=== PATIENT | male | born 1965 | race Caucasian/White ===

== ENCOUNTER 2018-01-02 14:22 | Observation (INO) | payer SELFPAY ==
[~2018-01-02] VITALS: Ht 175.3 cm; Wt 123.4 kg
--- OUTSIDE RECORDS SUMMARY | 2018-01-02 14:28 | XMS REPORT ---
Author Author DARRYL THOMPSON Organization [employer] Address Unknown Phone Unavailable Care Team Providers Care Tandem Mill Sticker Name Role Phone DARRYL THOMPSON CP Unavailable Allergies, Adverse Reactions, Alerts Substance Reaction Event Type N.K.D.A. Info Not Available Non Drug Allergy Problems Problem Type Condition Code Onset Dates Condition Status Assessment Essential hypertension with goal blood pressure less than 140\/90 I10 Active Problem Essential hypertension, benign 401.1 Active Problem Other and unspecified hyperlipidemia 272.4 Active Problem Pain of right heel M79.671 Active Problem Pain in left ankle and joints of left foot M25.572 Active Problem Essential hypertension with goal blood pressure less than 140\/90 I10 Active Problem Actinic keratitis 370.24 Active Problem Seborrheic keratoses 702.19 Active Problem Morbid obesity due to excess calories E66.01 Active Problem Obesity 278.00 Active Assessment Morbid obesity due to excess calories E66.01 Active Assessment Pain in left ankle and joints of left foot M25.572 Active Assessment Pain of right heel M79.671 Active Medications Medication Code System Code Instructions Start Date End Date Status Dosage Lisinopril-Hydrochlorothiazide [facility] [address]-61 20-12.5 MG Orally Once a day May 12, 2015 2 tablets Mobic [facility] [address]-61 7.5 MG Orally twice a day February 26, 2016 1 tablet as needed for pain Procedures Procedure Coding System Code Date Office Visit, Est Pt., Level 4 CPT-4 63169 February 26, 2016 Vital Signs Date/Time: February 26, 2016 Temperature 98.1 F Weight 280.9 lbs Height 69 in BMI 41.48 Index Blood Pressure Diastolic 100 mmHg Blood Pressure Systolic 170 mmHg Cardiac Monitoring Heart Rate 84 bpm Results No Known Results Summary Purpose [employer] Submission
--- OUTSIDE RECORDS SUMMARY | 2018-01-02 14:28 | XMS REPORT ---
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 Active Problem Morbid obesity due to excess calories E66.01 Active Assessment Plantar fasciitis M72.2 Active Medications Medication Code System Code Instructions Start Date End Date Status Dosage [facility] [address]-97 15 MG Orally Once a day Jun 09, 2016 Aug 08, 2016 1 tablet Procedures Procedure Coding System Code Date Office Visit, Est Pt., Level 3 CPT-4 87841 Jun 09, 2016 X-RAY EXAM OF FOOT CPT-4 36804 Jun 09, 2016 FOOT ARCH SUPP PREMOLD LNGTUDNL EA CPT-4 L3040 Jun 09, 2016 Vital Signs Date/Time: Jun 09, 2016 Blood Pressure Diastolic 72 mmHg Blood Pressure Systolic 112 mmHg Height 69 in Results No Known Results Summary Purpose [employer] Submission
--- OUTSIDE RECORDS SUMMARY | 2018-01-02 14:28 | XMS REPORT ---
Author GIAN Jean [employer] Address Unknown Phone Unavailable Care Team Providers Care Gas Main And Line Fitter Name Role Phone GIAN ROSA CP Unavailable Allergies, Adverse Reactions, Alerts Substance Reaction Event Type N.K.D.A. Info Not Available Non Drug Allergy Problems Problem Type Condition ICD-9 Code Onset Dates Condition Status Assessment Actinic keratitis 370.24 Active Assessment Obesity 278.00 Active Assessment Foot pain, right 729.5 Active Assessment Seborrheic keratoses 702.19 Active Problem Actinic keratitis 370.24 Active Problem Seborrheic keratoses 702.19 Active Problem Obesity 278.00 Active Assessment Essential hypertension, benign 401.1 Active Assessment Other and unspecified hyperlipidemia 272.4 Active Problem Essential hypertension, benign 401.1 Active Problem Other and unspecified hyperlipidemia 272.4 Active Medications Medication Code System Code Instructions Start Date End Date Status Dosage Lisinopril-Hydrochlorothiazide [facility] [address]-91 20-12.5 MG Orally 2 times a day May 12, 2015 1 tablet Atorvastatin Calcium [facility] [address]-64 40 MG Orally Once a day May 12, 2015 1 tablet Triamcinolone Acetonide [facility] [address]-49 0.1 % Externally Twice a day Jun 29, 2015 1 application to affected area Procedures Procedure Coding System Code Date Office Visit, Est Pt., Level 4 CPT-4 42623 Jun 29, 2015 Vital Signs Date/Time: Jun 29, 2015 Temperature 98.7 F Weight 263.11 lbs Height 69 in BMI 38.85 Index Blood Pressure Diastolic 76 mmHg Blood Pressure Systolic 110 mmHg Cardiac Monitoring Heart Rate 71 bpm Results No Known Results Summary Purpose [employer] Submission
--- OUTSIDE RECORDS SUMMARY | 2018-01-02 14:28 | XMS REPORT | Continuity of Care Document ---
Author Author [facility] Address Unknown Phone Unavailable Allergies There is no data. Medications There is no data. Problems Date Dx Coded Attending Type Code Diagnosis Diagnosed By 10/16/2011 TENZIN BECERRA MD 278.00 OBESITY 10/16/2011 TENZIN BECERRA MD 401.9 ESSENTIAL HYPERTENSION 10/16/2011 TENZIN BECERRA MD V04.81 FLU DX (3 YRS AND ABOVE, IM) 10/16/2011 TENZIN BECERRA MD V70.0 ROUTINE GENERAL MEDICAL EXAMINATION AT A HEALTH CARE FACILITY 10/16/2011 TENZIN BECERRA MD 278.00 OBESITY 10/16/2011 TENZIN BECERRA MD 401.9 ESSENTIAL HYPERTENSION 10/16/2011 TENZIN BECERRA MD V04.81 FLU DX (3 YRS AND ABOVE, IM) 10/16/2011 TENZIN BECERRA MD V70.0 ROUTINE GENERAL MEDICAL EXAMINATION AT A HEALTH CARE FACILITY 10/16/2011 GIAN ROSA APRN 278.00 OBESITY 10/16/2011 GIAN ROSA APRN 401.9 ESSENTIAL HYPERTENSION 10/16/2011 GIAN ROSA APRN V04.81 FLU DX (3 YRS AND ABOVE, IM) 10/16/2011 GIAN ROSA APRN V70.0 ROUTINE GENERAL MEDICAL EXAMINATION AT A HEALTH CARE FACILITY 10/16/2011 GIAN ROSA APRN 278.00 OBESITY 10/16/2011 GIAN ROSA APRN 401.9 ESSENTIAL HYPERTENSION 10/16/2011 GIAN ROSA APRN V04.81 FLU DX (3 YRS AND ABOVE, IM) 10/16/2011 GIAN ROSA APRN V70.0 ROUTINE GENERAL MEDICAL EXAMINATION AT A HEALTH CARE FACILITY 10/16/2011 GIAN ROSA APRN 278.00 OBESITY 10/16/2011 GIAN ROSA APRN 401.9 ESSENTIAL HYPERTENSION 10/16/2011 GIAN ROSA APRN V04.81 FLU DX (3 YRS AND ABOVE, IM) 10/16/2011 GIAN ROSA APRN V70.0 ROUTINE GENERAL MEDICAL EXAMINATION AT A HEALTH CARE FACILITY 10/16/2011 CANELO REYNAGA DO 278.00 OBESITY 10/16/2011 CANELO REYNAGA DO K 401.9 ESSENTIAL HYPERTENSION 10/16/2011 CANELO REYNAGA DO V04.81 FLU DX (3 YRS AND ABOVE, IM) 10/16/2011 CANELO REYNAGA DO V70.0 ROUTINE GENERAL MEDICAL EXAMINATION AT A HEALTH CARE FACILITY 10/28/2012 TENZIN BECERRA MD 244.9 HYPOTHYROIDISM SUBCLINICAL 10/28/2012 TENZIN BECERRA MD 272.4 HYPERLIPIDEMIA 10/28/2012 TENZIN BECERRA MD 401.1 ESSENTIAL HYPERTENSION BENIGN 10/28/2012 GIAN ROSA APRN 244.9 HYPOTHYROIDISM SUBCLINICAL 10/28/2012 GIAN ROSA APRN 272.4 HYPERLIPIDEMIA 10/28/2012 GIAN ROSA APRN 401.1 ESSENTIAL HYPERTENSION BENIGN 10/28/2012 GIAN ROSA APRN 244.9 HYPOTHYROIDISM SUBCLINICAL 10/28/2012 GIAN ROSA APRN 272.4 HYPERLIPIDEMIA 10/28/2012 GIAN ROSA APRN 401.1 ESSENTIAL HYPERTENSION BENIGN 10/28/2012 GIAN ROSA APRN 244.9 HYPOTHYROIDISM SUBCLINICAL 10/28/2012 GIAN ROSA APRN 272.4 HYPERLIPIDEMIA 10/28/2012 GIAN ROSA APRN 401.1 ESSENTIAL HYPERTENSION BENIGN 10/28/2012 CANELO REYNAGA DO 244.9 HYPOTHYROIDISM SUBCLINICAL 10/28/2012 CANELO REYNAGA DO 272.4 HYPERLIPIDEMIA 10/28/2012 CANELO REYNAGA DO 401.1 ESSENTIAL HYPERTENSION BENIGN 03/09/2014 GIAN ROSA APRN 780.79 FATIGUE 03/09/2014 CANELO REYNAGA DO 780.79 FATIGUE Procedures Code [place] [address] ROUTINE VENIPUNCTURE 10/21/2012 56894 CMP 10/21/2012 30427 LIPID PANEL 10/21/2012 42255 A1C (RML) 10/21/2012 78167 CBC 10/21/2012 THYANA THYROID ANALYZER 10/21/2012 01552 ROUTINE VENIPUNCTURE 10/28/2012 91780 T4 FREE 10/28/2012 84689 TSH 10/28/2012 79412 EKG, TRACING (IN-HOUSE) 02/23/2014 75442 MICROALBUMIN 02/23/2014 90284 ROUTINE VENIPUNCTURE 03/09/2014 40581 CMP 03/09/2014 75027 LIPID PANEL 03/09/2014 THYANA THYROID ANALYZER 03/09/2014 25304 TESTOSTERONE TOTAL MALES 03/09/2014 87570 CBC 03/09/2014 Results There is no data. Encounters ACCT No. Visit Date/Time Discharge Status Pt. Type Provider Facility Loc./Unit Complaint [id number] 03/19/2014 09:04:00 03/19/2014 23:59:59 CLS Outpatient CANELO REYNAGA DO [id number] 03/09/2014 14:20:00 03/09/2014 23:59:59 CLS Outpatient GIAN ROSA APRN [id number] 03/09/2014 08:17:00 03/09/2014 23:59:59 CLS Outpatient GIAN ROSA APRN [id number] 02/23/2014 08:59:00 02/23/2014 23:59:59 CLS Outpatient GIAN ROSA APRN [id number] 10/28/2012 10:25:00 10/28/2012 23:59:59 CLS Outpatient TENZIN BECERRA MD [id number] 10/21/2012 08:29:00 10/21/2012 23:59:59 CLS Outpatient TENZIN BECERRA MD
[2018-01-02] MEDS ORDERED: NS IV 1000 ML 1,000 ML IV ONE (14:35)
[2018-01-02 14:49] LABS: BASOPHILS % (AUTO) 0 % (0-10); EOSINOPHILS # (AUTO) 0.2 10^3/uL (0.0-0.3); EOSINOPHILS % (AUTO) 2 % (0-10); HEMATOCRIT 45 % (40-54); HEMOGLOBIN 15.4 G/DL (13.3-17.7); LYMPHOCYTES # (AUTO) 1.4 X 10^3 (1.0-4.0); LYMPHOCYTES % (AUTO) 17 % (12-44); MEAN CORPUSCULAR HEMOGLOBIN 31 PG (25-34); MEAN CORPUSCULAR HGB CONC 34 G/DL (32-36); MEAN CORPUSCULAR VOLUME 90 FL (80-99); MEAN PLATELET VOLUME 11.8 FL (7.4-10.4); MONOCYTES # (AUTO) 1.1 X 10^3 (0.0-1.0); MONOCYTES % (AUTO) 13 % (0-12); NEUTROPHILS # (AUTO) 5.6 X 10^3 (1.8-7.8); NEUTROPHILS % (AUTO) 68 % (42-75); PLATELET COUNT 162 10^3/uL (130-400); RED BLOOD COUNT 4.97 10^6/uL (4.35-5.85); RED CELL DISTRIBUTION WIDTH 13.9 % (10.0-14.5); WHITE BLOOD COUNT 8.2 10^3/uL (4.3-11.0)
[2018-01-02] MEDS ORDERED: LISI1TAB8 PO (14:53)
[2018-01-02 15:06] LABS: ALBUMIN 4.2 GM/DL (3.2-4.5); BILIRUBIN,TOTAL 0.7 MG/DL (0.1-1.0); CALCIUM 9.9 MG/DL (8.5-10.1); CREATININE SERUM 1.26 MG/DL (0.60-1.30); POTASSIUM 4.2 MMOL/L (3.6-5.0); TOTAL PROTEIN 8.2 GM/DL (6.4-8.2)
[2018-01-02] MEDS ORDERED: NS 100 ML (IVPB) BAG IV ONE (15:15)
[2018-01-02] MEDS ORDERED: IOHEXOL 350 MG/ML 150 ML (OMNIPAQUE 350) VIAL IV ONE (15:15)
--- NOTE | 2018-01-02 15:45 | ED Respiratory ---
General Chief Complaint: Respiratory Problems Stated Complaint: SOB Nursing Triage Note: pt presents to ED after getting out pt US of L leg for pain/ tightness/ redness starting . Pt also reports intermittent SOA since as well. Pt reports he was told today he did have blood clots in his l leg. Source: patient Exam Limitations: no limitations History of Present Illness Date Seen by Provider: Jan 02, 2018 Time Seen by Provider: 14:30 Initial Comments Here with report of left lower extremity swelling and pain for the past several days. Also has had some shortness of air. Past couple of days. Had ultrasound done today here per the direction of his primary care provider at [facility]. This was positive for DVT. Given the shortness of breath the clinic recommended following up in the ER for further evaluation. Denies chest pain, weakness, sweating, nausea, vomiting or abdominal pain. Timing/Duration: week, getting worse Severity: moderate Associated Symptoms: No chest pain/soreness, No cough, No fever/chills, No nasal congestion, No nasal drainage, shortness of breath, sore throat Allergies and Home Medications Allergies Coded Allergies: No Known Drug Allergies (Unverified , 01/02/18) Constitutional: see HPI EENTM: no symptoms reported Respiratory: see HPI, dyspnea on exertion, short of breath Cardiovascular: no symptoms reported Gastrointestinal: no symptoms reported Musculoskeletal: no symptoms reported Skin: no symptoms reported All Other Systems Reviewed Negative Unless Noted: Yes Past Vfbatrm-Fkercj-Ebeveq Hx Patient Social History Alcohol Use: Occasionally Uses Recreational Drug Use: No Smoking Status: Never a Smoker 2nd Hand Smoke Exposure: No Recent Foreign Travel: No Contact w/Someone Who Travel: No Recent Infectious Disease Expo: No Physical Abuse: No Sexual Abuse: No Mistreated: No Fear: No Surgeries History of Surgeries: No Respiratory History of Respiratory Disorde: No Cardiovascular History of Cardiac Disorders: Yes Cardiac Disorders: High Cholesterol, Hypertension Neurological History of Neurological Disord: No Genitourinary History of Genitourinary Disor: No Gastrointestinal History of Gastrointestinal Di: No Musculoskeletal History of Musculoskeletal Dis: No Endocrine History of Endocrine Disorders: No HEENT History of HEENT Disorders: No Cancer History of Cancer: No Psychosocial History of Psychiatric Problem: No Suicide Risk Score: 0 Integumentary History of Skin or Integumenta: No Blood Transfusions History of Blood Disorders: No Reviewed Nursing Assessment Reviewed/Agree w Nursing PMH: Yes Family Medical History Significant Family History: Diabetes, Hypertension Physical Exam Vital Signs Vital Signs - First Documented 01/02/18 14:39 Temp 97.9 Pulse 78 Resp 20 B/P (MAP) 116/70 (85) Pulse Ox 97 O2 Delivery Room Air Capillary Refill : Less Than 3 Seconds General Appearance: WD/WN, no apparent distress HEENT: PERRL/EOMI, pharynx normal Neck: full range of motion, supple Respiratory: lungs clear, normal breath sounds Cardiovascular: regular rate, rhythm, no murmur Gastrointestinal: non tender, soft Extremities: non-tender, calf tenderness (left-sided), swelling (left-sided) Neurologic/Psychiatric: alert, oriented x 3 Skin: normal color, warm/dry Progress/Results/Core Measures Suspected Sepsis Recent Fever Within 48 Hours: No Infection Criteria Present: None New/Unexplained Altered Menta: No Sepsis Screen: No Definite Risk Sepsis Diagnosis: SIRS Temperature:97.9 Pulse: 78 Respiratory Rate: 20 Laboratory Tests 01/02/18 14:33: White Blood Count 8.2 Blood Pressure 116 /70 Mean: 85 Laboratory Tests 01/02/18 14:33: Creatinine 1.26, Platelet Count 162, Total Bilirubin 0.7 Results/Orders Lab Results Laboratory Tests Test 01/02/18 14:33 01/02/18 16:29 Range/Units White Blood Count 8.2 4.3-11.0 10^3/uL Red Blood Count 4.97 4.35-5.85 10^6/uL Hemoglobin 15.4 13.3-17.7 G/DL Hematocrit 45 40-54 % Mean Corpuscular Volume 90 80-99 FL Mean Corpuscular Hemoglobin 31 25-34 PG Mean Corpuscular Hemoglobin Concent 34 32-36 G/DL Red Cell Distribution Width 13.9 10.0-14.5 % Platelet Count 162 130-400 10^3/uL Mean Platelet Volume 11.8 H 7.4-10.4 FL Neutrophils (%) (Auto) 68 42-75 % Lymphocytes (%) (Auto) 17 12-44 % Monocytes (%) (Auto) 13 H 0-12 % Eosinophils (%) (Auto) 2 0-10 % Basophils (%) (Auto) 0 0-10 % Neutrophils # (Auto) 5.6 1.8-7.8 X 10^3 Lymphocytes # (Auto) 1.4 1.0-4.0 X 10^3 Monocytes # (Auto) 1.1 H 0.0-1.0 X 10^3 Eosinophils # (Auto) 0.2 0.0-0.3 10^3/uL Basophils # (Auto) 0.0 0.0-0.1 10^3/uL Sodium Level 138 135-145 MMOL/L Potassium Level 4.2 3.6-5.0 MMOL/L Chloride Level 104 98-107 MMOL/L Carbon Dioxide Level 23 21-32 MMOL/L Anion Gap 11 5-14 MMOL/L Blood Urea Nitrogen 21 H 7-18 MG/DL Creatinine 1.26 0.60-1.30 MG/DL Estimat Glomerular Filtration Rate 60 BUN/Creatinine Ratio 17 Glucose Level 102 70-105 MG/DL Calcium Level 9.9 8.5-10.1 MG/DL Total Bilirubin 0.7 0.1-1.0 MG/DL Aspartate Amino Transf (AST/SGOT) 74 H 5-34 U/L Alanine Aminotransferase (ALT/SGPT) 84 H 0-55 U/L Alkaline Phosphatase 82 40-136 U/L Total Protein 8.2 6.4-8.2 GM/DL Albumin 4.2 3.2-4.5 GM/DL My Orders Orders - PATRICIA KO MD Cbc With Automated Diff (01/02/18 14:35) Comprehensive Metabolic Panel (01/02/18 14:35) Ct Angio Chest W (01/02/18 14:35) Saline Lock/Iv-Start (01/02/18 14:35) Ns Iv 1000 Ml (Sodium Chloride 0.9%) (01/02/18 14:35) Iohexol Injection (Omnipaque 350 Mg/Ml 1 (01/02/18 15:15) Ns (Ivpb) (Sodium Chloride 0.9% Ivpb Bag (01/02/18 15:15) Enoxaparin Injection (Lovenox Injection) (01/02/18 16:15) Factor 5 Leiden (01/02/18 16:16) Medications Given in ED Current Medications Medications Dose Ordered Sig/Eric Route Start Time Stop Time Status Last Admin Dose Admin Enoxaparin Sodium 120 mg ONCE ONCE SC 01/02/18 16:15 01/02/18 16:16 DC 01/02/18 16:26 120 MG Iohexol 150 ml ONCE ONCE IV 01/02/18 15:15 01/02/18 15:16 DC 01/02/18 15:29 140 ML Sodium Chloride 100 ml ONCE ONCE IV 01/02/18 15:15 01/02/18 15:16 DC 01/02/18 15:29 100 ML Sodium Chloride 1,000 ml @ 0 mls/hr Q0M ONCE IV 01/02/18 14:35 01/02/18 14:37 DC 01/02/18 14:57 0 MLS/HR Vital Signs/I&O Vital Sign - Last 12Hours 01/02/18 14:39 Temp 97.9 Pulse 78 Resp 20 B/P (MAP) 116/70 (85) Pulse Ox 97 O2 Delivery Room Air Capillary Refill : Less Than 3 Seconds Blood Pressure Mean: 85 Progress Note : Progress Note Review of the chest ordered due to shortness of breath and known DVT. Normal saline 1 L bolus. 1603: Patient has an extensive PE bilaterally. I discussed the case with Dr. Butterfield. Due to both the lower extremity DVT and PE, we will watch him overnight given the has been short of breath. Lovenox 120 mg subcutaneous ordered. We will also initiate Eliquis 10 mg by mouth twice a day with a seven-day dosing and start that tonight. Findings and concerns discussed with patient and family who agree with plan. Diagnostic Imaging Diagonstic Imaging: CT Plain Films/CT/US/NM/MRI: chest Comments VIA [facility] [place], [place] NAME: KB LUDWIG [facility] REC#: [id number] PT STATUS: REG ER : 1965 PHYSICIAN: PATRICIA KO MD ADMIT DATE: 01/02/18/ER Draft Date of Exam:01/02/18 CT ANGIO CHEST W PROCEDURE: CT angiography of the chest with contrast. TECHNIQUE: Multiple contiguous axial images were obtained through the chest after uneventful bolus administration of intravenous contrast. Reconstructed CTA MIP acquisitions were also performed. INDICATION: Shortness of breath. COMPARISON: None. FINDINGS: There is a large embolus seen within the distal left main pulmonary artery and extending into the segmental branches to the left lower lobe and lingular branches. There is also embolus within the distal right main pulmonary artery with segmental branch involvement in the right upper lobe posteriorly as well as the right middle lobe and right lower lobe. There is no evidence of right heart dysfunction at this time. The lungs are clear. There is no pneumothorax or pleural fluid. There is no adenopathy. The thyroid gland appears unremarkable. There is hepatic steatosis. Visualized upper abdomen is otherwise unremarkable. No acute osseous abnormality is demonstrated. IMPRESSION: Extensive bilateral PE involving the distal main pulmonary arteries bilaterally extending into the lingula and left lower lobe as well as the right upper middle and lower lobes. No evidence of right heart dysfunction at this time. Findings were phoned to the referring physician at the time of dictation by Dr. Monica Wilson. Dictated on workstation # [id number] Dict: 01/02/18 1553 Trans: 01/02/18 1605 [facility] [id number] Interpreted by: BRIAN WILSON DO Electronically signed by: Diagonstic Imaging: Ultrasound Plain Films/CT/US/NM/MRI: leg Comments From ultrasound done earlier today NAME: KB LUDWIG [facility] REC#: [id number] PT STATUS: REG CLI : 1965 PHYSICIAN: DARRYL THOMPSON ADMIT DATE: 01/02/18/RAD Signed Date of Exam: 01/02/18 US VENOUS LOWER EXT LT PROCEDURE: US left lower extremity venous. TECHNIQUE: Multiple real-time grayscale images were obtained over the left lower extremity in various projections. Additional duplex Doppler and color Doppler images were also obtained. INDICATION: Left lower extremity swelling. The left common femoral vein is widely patent. The upper femoral vein is patent. There is partially occlusive thrombus in the midportion of the femoral vein. Occlusive thrombus is identified in the popliteal vein. Thrombus does extend below the knee into the calf. No fluid collection is detected. No mass is seen. IMPRESSION: Left lower extremity DVT, as described. Dictated by: Dictated on workstation # [id number] Dict: 01/02/18 1437 Trans: 01/02/18 1543 Interpreted by: LYNNE LUCAS MD Electronically signed by: LYNNE LUCAS MD 01/02/18 1543 Departure Communication (Admissions) Time/Spoke to Admitting Phy: 16:03 Impression Impression: Primary Impression: Bilateral pulmonary embolism Additional Impression: Left leg DVT Qualified Codes: I82.412 - Acute embolism and thrombosis of left femoral vein Disposition: ADMITTED INPATIENT Condition: Stable Admissions Decision to Admit Reason: Admit from ER (General) Decision to Admit/Date: Jan 02, 2018 Time/Decision to Admit Time: 16:03 Departure-Patient Inst. Referrals: NO,LOCAL PHYSICIAN (PCP/Family) Primary Care Physician PATRICIA KO MD Jan 02, 2018 15:45
--- NOTE | 2018-01-02 16:06 | Diagnostic Imaging Report ---
PROCEDURE: CT angiography of the chest with contrast. TECHNIQUE: Multiple contiguous axial images were obtained through the chest after uneventful bolus administration of intravenous contrast. Reconstructed CTA MIP acquisitions were also performed. INDICATION: Shortness of breath. COMPARISON: None. FINDINGS: There is a large embolus seen within the distal left main pulmonary artery and extending into the segmental branches to the left lower lobe and lingular branches. There is also embolus within the distal right main pulmonary artery with segmental branch involvement in the right upper lobe posteriorly as well as the right middle lobe and right lower lobe. There is no evidence of right heart dysfunction at this time. The lungs are clear. There is no pneumothorax or pleural fluid. There is no adenopathy. The thyroid gland appears unremarkable. There is hepatic steatosis. Visualized upper abdomen is otherwise unremarkable. No acute osseous abnormality is demonstrated. IMPRESSION: Extensive bilateral PE involving the distal main pulmonary arteries bilaterally extending into the lingula and left lower lobe as well as the right upper middle and lower lobes. No evidence of right heart dysfunction at this time. Findings were phoned to the referring physician at the time of dictation by Dr. Monica Nathan. Dictated by: Dictated on workstation # [id number]
[2018-01-02] MEDS ORDERED: ENOXAPARIN 60 MG/0.6 ML (LOVENOX) SYR SC ONE (16:15)
--- OUTSIDE RECORDS SUMMARY | 2018-01-02 17:04 | XMS REPORT | Continuity of Care Document ---
Author Author [facility] Address Unknown Phone Unavailable Allergies There is [...] ROSA APRN 244.9 HYPOTHYROIDISM SUBCLINICAL 10/28/2012 GIAN ORSA APRN 272.4 HYPERLIPIDEMIA 10/28/2012 GIAN ROSA APRN 401.1 ESSENTIAL HYPERTENSION BENIGN 10/28/2012 CANELO REYNAGA DO 244.9 HYPOTHYROIDISM SUBCLINICAL 10/28/2012 CANELO REYNAGA DO 272.4 HYPERLIPIDEMIA 10/28/2012 CANELO REYNAGA DO 401.1 ESSENTIAL HYPERTENSION BENIGN 03/09/2014 GIAN ROSA APRN 780.79 FATIGUE 03/09/2014 CANELO REYNAGA DO 780.79 FATIGUE Procedures Code Description [place] [address] ROUTINE VENIPUNCTURE 10/21/2012 42937 CMP 10/21/2012 50115 LIPID PANEL 10/21/2012 15600 A1C (RML) 10/21/2012 13248 CBC 10/21/2012 THYANA THYROID ANALYZER 10/21/2012 67225 ROUTINE VENIPUNCTURE 10/28/2012 57092 T4 FREE 10/28/2012 00496 TSH 10/28/2012 69508 EKG, TRACING (IN-HOUSE) 02/23/2014 87075 MICROALBUMIN 02/23/2014 85010 ROUTINE VENIPUNCTURE 03/09/2014 63816 CMP 03/09/2014 82710 LIPID PANEL 03/09/2014 THYANA THYROID ANALYZER 03/09/2014 23561 TESTOSTERONE TOTAL MALES 03/09/2014 30632 CBC 03/09/2014 Results There is no data. Encounters ACCT No. Visit Date/Time Discharge Status Pt. Type Provider Facility Loc./Unit Complaint [id number] 03/19/2014 09:04:00 03/19/2014 23:59:59 CLS Outpatient CANELO REYNAGA DO [id number] 03/09/2014 14:20:00 03/09/2014 23:59:59 CLS Outpatient GIAN ROSA APRN [id number] 03/09/2014 08:17:00 03/09/2014 23:59:59 CLS Outpatient GIAN ROSA APRN [id number] 02/23/2014 08:59:00 02/23/2014 23:59:59 CLS Outpatient GIAN ROSA APRN [id number] 10/28/2012 10:25:00 10/28/2012 23:59:59 CLS Outpatient TENZIN BECERRA MD [id number] 10/21/2012 08:29:00 10/21/2012 23:59:59 CLS Outpatient TENZIN BECERRA MD
[2018-01-02] MEDS ORDERED: CATHETER FLUSH 10 ML SYR IV PRN (18:00)
[2018-01-02] MEDS ORDERED: NS IV 1000 ML 1,000 ML IV SCH (18:00)
[2018-01-02] MEDS ORDERED: INFLUENZA TRIvalent 2017-2018 0.5 ML/45 MCG SYR IM ONE (18:30)
[2018-01-02 20:02] VITALS: BP 126/62
[2018-01-02] MEDS: APIXABAN 5 MG (ELIQUIS) TABLET PO SCH (21:26)
[2018-01-02] MEDS ORDERED: RT-ALBUTEROL/IPRATROPIUM 3 ML (DUONEB) VIAL INH PRN (22:30)
[2018-01-03] VITALS: BP 131/64
[2018-01-03 04:00] VITALS: BP 118/56
[2018-01-03 07:28] LABS: ALANINE AMINOTRANSFERASE 73 U/L (0-55); ALBUMIN 3.7 GM/DL (3.2-4.5); ALKALINE PHOSPHATASE 72 U/L (40-136); BILIRUBIN,TOTAL 0.7 MG/DL (0.1-1.0); BUN/CREATININE RATIO 16; CARBON DIOXIDE 18 MMOL/L (21-32); CHLORIDE 106 MMOL/L (98-107); CREATININE SERUM 1.05 MG/DL (0.60-1.30); GFR ESTIMATED > 60; GLUCOSE 103 MG/DL (70-105); POTASSIUM 4.4 MMOL/L (3.6-5.0); SODIUM 137 MMOL/L (135-145); TOTAL PROTEIN 7.1 GM/DL (6.4-8.2)
[2018-01-03 08:00] VITALS: BP 143/65
[2018-01-03] MEDS: APIXABAN 5 MG (ELIQUIS) TABLET PO SCH (08:57)
--- NOTE | 2018-01-03 10:24 | History & Physicial (CHS) ---
GINNY BALL MED STUDENT 01/03/18 1024: HPI History of Present Illness: CC: L calf pain and swelling, shortness of breath HPI: Mr. Pickens is a 52 y/o M who presented to [facility] in [place] yesterday with progressive L calf pain and swelling with shortness of breath. He says he started noticing symptoms around Sunday of last week, where he felt short of breath while he was working. On Sunday of this week, he started to have increased calf swelling and pain. Yesterday he was sent from the [place] clinic to get an ultrasound and a DVT was found in his LLE, and CT angio of his chest showed bilateral PE, so he was admitted. He does not have any personal or family history of hypercoagulability or vascular problems, and denies any liver problems that he knows of. He is a never smoker. Source: patient Exam Limitations: no limitations Date seen by provider: Jan 03, 2018 Time Seen by Provider: 09:34 Attending Physician Wenceslao Portillo MD PCP No,Local Physician Consult Date of Admission Jan 02, 2018 at 17:00 Home Medications Home Medications Reviewed patient Home Medication Reconciliation Form Allergies Coded Allergies: No Known Drug Allergies (Unverified , 01/02/18) [id number] Hx Patient Social History Marrital Status: Number of Children: 3 Number of living children: 3 Employed/Student: employed Alcohol Use: Occasionally Uses (1-2 beers, 2-3x/week) Recreational Drug Use: No Smoking Status: Never a Smoker 2nd Hand Smoke Exposure: No Recent Foreign Travel: No Contact w/other who traveled: No Recent Hopitalizations: No Recent Infectious Disease Expo: No Physical Abuse Screen: No Sexual Abuse: No Past Medical History HTN Family Medical History Significant Family History: Diabetes, Hypertension Family History: Diabetes mellitus G8 BROTHER Review of Systems ([facility]) Constitutional: no symptoms reported, No fever, No malaise EENTM: no symptoms reported Respiratory: dyspnea on exertion, short of breath Cardiovascular: edema (LLE edema improved from yesterday), No palpitations Gastrointestinal: No abdominal pain Genitourinary: no symptoms reported Musculoskeletal: No back pain, No joint pain Skin: No change in color, No rash Psychiatric/Neurological: Denies Headache Reviewed Test Results Reviewed Test Results Lab Laboratory Tests 01/02/18 14:33 01/03/18 07:01 Laboratory Tests 01/02/18 14:33: Mean Platelet Volume 11.8H, Monocytes (%) (Auto) 13H, Monocytes # (Auto) 1.1H, Blood Urea Nitrogen 21H, Aspartate Amino Transf (AST/SGOT) 74H, Alanine Aminotransferase (ALT/SGPT) 84H 01/02/18 16:29: 01/03/18 07:01: Aspartate Amino Transf (AST/SGOT) 52H, Alanine Aminotransferase (ALT/SGPT) 73H, Carbon Dioxide Level 18L 01/03/18 09:01: Radiology CT angio chest 01/02@14:35 IMPRESSION: Extensive bilateral PE involving the distal main pulmonary arteries bilaterally extending into the lingula and left lower lobe as well as the right upper middle and lower lobes. No evidence of right heart dysfunction at this time. Physical Exam-([facility]) Physical Exam Vital Signs VS - Last 72 Hours, by Label 01/02/18 01/02/18 01/02/18 01/02/18 14:39 17:28 18:41 18:55 Temp 97.9 Pulse 78 80 Resp 20 26 B/P (MAP) 116/70 (85) 121/85 Pulse Ox 97 99 98 O2 Delivery Room Air Room Air Room Air 01/02/18 01/02/18 01/02/18 01/02/18 18:55 19:00 20:02 21:00 Temp 97.0 Pulse 75 82 84 Resp 20 B/P (MAP) 126/62 (83) Pulse Ox 98 95 95 O2 Delivery Room Air Room Air FiO2 21 01/02/18 01/03/18 01/03/18 01/03/18 22:20 00:00 01:00 01:21 Temp 97.4 Pulse 73 66 Resp 18 B/P (MAP) 131/64 (86) Pulse Ox 96 96 93 O2 Delivery Room Air Room Air Room Air 01/03/18 01/03/18 04:00 07:00 Temp 98.6 Pulse 73 67 Resp 18 B/P (MAP) 118/56 (76) Pulse Ox 97 O2 Delivery Room Air Capillary Refill : Less Than 3 Seconds General Appearance: WD/WN, no apparent distress Neck: normal inspection Respiratory: lungs clear, normal breath sounds, no respiratory distress Cardiovascular: normal peripheral pulses, regular rate, rhythm, no edema Gastrointestinal: normal bowel sounds, non tender, soft Rectal: deferred Extremities: normal inspection, calf tenderness (LLE ), No pedal edema, No swelling Neurologic/Psychiatric: alert, normal mood/affect Skin: normal color, warm/dry Clinical Quality Measures DVT/VTE Risk/Contraindication: Risk Factor Score Per Nursin RFS Level Per Nursing on Admit: 4+=Very High Assessment/Plan Assessment/Plan Admission Dx Bilateral PE, LLE DVT Admission Status: Observation Assessment & Plan 1. Bilateral PE -doing well on RA, not requiring oxygen supplementation at rest -RT to check ambulating SPO2 -Anticoagulation: continue Eliquis 10mg BID for a total of 7 days, then 5mg BID. Will obtain medication at [facility]. -will need hematology workup for etiology when acute coagulation event is resolved, in around 6 months 2. LLE DVT -calf swelling and tenderness improved from admission -see above for anticoagulation 3. HTN - hold home lisinopril for now, recheck blood pressure at outpatient f/u and consider restarting 4. Elevated liver enzymes -AST 52, ALT 73 -will draw hepatitis panel FEN: regular diet Ppx: Eliquis Dispo: discharge today, f/u scheduled in [facility] on Thursday 01/11 WENCESLAO PORTILLO MD 01/03/18 1106: Home Medications Allergies Coded Allergies: No Known Drug Allergies (Unverified , 01/02/18) Physical Exam-([facility]) Physical Exam Vital Signs VS - Last 72 Hours, by Label 01/02/18 01/02/18 01/02/18 01/02/18 14:39 17:28 18:41 18:55 Temp 97.9 Pulse 78 80 Resp 20 26 B/P (MAP) 116/70 (85) 121/85 Pulse Ox 97 99 98 O2 Delivery Room Air Room Air Room Air 01/02/18 01/02/18 01/02/18 01/02/18 18:55 19:00 20:02 21:00 Temp 97.0 Pulse 75 82 84 Resp 20 B/P (MAP) 126/62 (83) Pulse Ox 98 95 95 O2 Delivery Room Air Room Air FiO2 21 01/02/18 01/03/18 01/03/18 01/03/18 22:20 00:00 01:00 01:21 Temp 97.4 Pulse 73 66 Resp 18 B/P (MAP) 131/64 (86) Pulse Ox 96 96 93 O2 Delivery Room Air Room Air Room Air 01/03/18 01/03/18 01/03/18 04:00 07:00 08:00 Temp 98.6 97.6 Pulse 73 67 80 Resp 18 20 B/P (MAP) 118/56 (76) 143/65 (91) Pulse Ox 97 93 O2 Delivery Room Air Room Air General Appearance: WD/WN, no apparent distress Respiratory: lungs clear, normal breath sounds, no respiratory distress Cardiovascular: regular rate, rhythm, no murmur Gastrointestinal: normal bowel sounds, non tender, soft Extremities: No pedal edema Neurologic/Psychiatric: alert, normal mood/affect Skin: normal color, warm/dry Assessment/Plan Assessment/Plan Admission Status: Observation Supervisory-Addendum Brief Supervisory Addendum Patient seen and examined with MS3 Ginny Ball, agree with documentation unless otherwise noted/differs in my documentation. GINNY BALL MED STUDENT Jan 03, 2018 10:24 WENCESLAO PORTILLO MD Jan 03, 2018 11:06
[2018-01-03] MEDS ORDERED: APIX5TAB PO ×2 (10:27)
[2018-01-03 11:30] VITALS: BP 143/65
--- NOTE | 2018-01-03 12:22 | Discharge Instructions ---
Discharge Inst-[facility] Discharge Medications New, Converted or Re-Newed RX: Other (Samples will be available at [facility] New Medications: Apixaban (Eliquis) 5 Mg Tablet 5 MG PO BID for 30 Days, TAB 5 Refills Start taking after 6 days of taking 10 mg (2 tabs) twice daily. Sample will be ready for you at [facility]. Apixaban (Eliquis) 5 Mg Tablet 10 MG PO BID for 6 Days, #24 TAB 0 Refills Sample will be ready for you at [facility]. Discontinued Medications: Lisinopril/Hydrochlorothiazide (Lisinopril-Hctz 20-12.5 mg Tab) 1 Each Tablet 1 TAB PO DAILY, TAB Patient Instructions Goal/Follow Up Appt: Follow up with Jessica Young on January 11 at 10 am. Go to [facility] for a blood pressure check (nurse visit) on Sunday. Patient Instructions: 1. 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 2. Hold (do not take) your blood pressure medicine until blood pressure check on Sunday because your blood pressure has been low since the diagnosis of pulmonary embolism. [facility]: Fever, worsening shortness of breath, chest pain Activity & Diet Discharge Diet: Regular Diet Activity as Tolerated: Yes (No strenuous activity until further evaluation at follow-up visit.) Copy Copies To 1: MARY ANN Miner BETHANY N MD Jan 03, 2018 10:33 am
--- NOTE | 2018-01-03 12:28 | Discharge Summary ---
Diagnosis/Chief Complaint Date of Admission Jan 02, 2018 at 5:00 pm Date of Discharge Jan 03, 2018 Admission Diagnosis Admission Diagnosis Bilateral pulmonary embolism LLE DVT Elevated LFTs HTN Discharge Diagnosis Bilateral pulmonary embolism- extensive, but patient stable, no hypoxia at rest or with ambulation, and no cardiovascular compromise other than his blood pressure running normal without BP meds which were held on d/c until follow up blood pressure check. Started on Eliquis inpatient, able to provide samples through clinic on discharge and he will complete forms to try to get through patient assistance for long-term treatment. Will need further work-up for thrombophilia, consider Hematology referral. Factor V Leiden pending. LLE DVT- treatment as above Elevated LFTs- hepatitis panel pending on d/c, will need followed up and possibly liver US outpatient HTN- BP normal to borderline low inpatient, lisinopril/HCTZ held until repeat outpatient BP check. Chief Complaint/HPI Chief Complaint/HPI HPI: Mr. Pickens is a 52 y/o M who presented to [facility] in [place] yesterday with progressive L calf pain and swelling with shortness of breath. He says he started noticing symptoms around Sunday of last week, where he felt short of breath while he was working. On Sunday of this week, he started to have increased calf swelling and pain. Yesterday he was sent from the [place] clinic to get an ultrasound and a DVT was found in his LLE, and CT angio of his chest showed bilateral PE, so he was admitted. He does not have any personal or family history of hypercoagulability or vascular problems, and denies any liver problems that he knows of. He is a never smoker. Discharge Summary-OBS Procedures None. Consultations Discharge Physical Examination Allergies: Coded Allergies: No Known Drug Allergies (Unverified , 01/02/18) Vitals & I&Os Intake and Output 01/03/18 00:00 Intake Total 1300 ml Output Total 500 ml Balance 800 ml Vital Sign - Last 12Hours Date Time Temp Pulse Resp B/P (MAP) Pulse Ox O2 Delivery O2 Flow Rate FiO2 01/03/18 08:00 97.6 80 20 143/65 (91) 93 Room Air 01/02/18 18:55 21 General Appearance: Alert, No Acute Distress Respiratory: Clear to Auscultation, Normal Air Movement Cardiovascular: Regular Rate, No Murmurs Extremities: No Edema (per patient report was significant yesterday, but unable to appreciate significant difference between legs today) Neuro: Normal Speech Psych/Mental Status: Mental Status NL Hospital Course See discharge diagnosis Labs Laboratory Tests 01/02/18 14:33: White Blood Count 8.2, Red Blood Count 4.97, Hemoglobin 15.4, Hematocrit 45, Mean Corpuscular Volume 90, Mean Corpuscular Hemoglobin 31, Mean Corpuscular Hemoglobin Concent 34, Red Cell Distribution Width 13.9, Platelet Count 162, Mean Platelet Volume 11.8H, Neutrophils (%) (Auto) 68, Lymphocytes (%) (Auto) 17 , Monocytes (%) (Auto) 13H, Eosinophils (%) (Auto) 2, Basophils (%) (Auto) 0, Neutrophils # (Auto) 5.6, Lymphocytes # (Auto) 1.4, Monocytes # (Auto) 1.1H, Eosinophils # (Auto) 0.2, Basophils # (Auto) 0.0, Sodium Level 138, Potassium Level 4.2, Chloride Level 104, Carbon Dioxide Level 23, Anion Gap 11, Blood Urea Nitrogen 21H, Creatinine 1.26, Estimat Glomerular Filtration Rate 60, BUN/ Creatinine Ratio 17, Glucose Level 102, Calcium Level 9.9, Total Bilirubin 0.7, Aspartate Amino Transf (AST/SGOT) 74H, Alanine Aminotransferase (ALT/SGPT) 84H, Alkaline Phosphatase 82, Total Protein 8.2, Albumin 4.2 01/02/18 16:29: 01/03/18 07:01: Sodium Level 137, Potassium Level 4.4, Chloride Level 106, Carbon Dioxide Level 18L, Anion Gap 13, Blood Urea Nitrogen 17, Creatinine 1.05, Estimat Glomerular Filtration Rate > 60, BUN/Creatinine Ratio 16, Glucose Level 103, Calcium Level 9.0, Total Bilirubin 0.7, Aspartate Amino Transf (AST/SGOT) 52H, Alanine Aminotransferase (ALT/SGPT) 73H, Alkaline Phosphatase 72, Total Protein 7.1, Albumin 3.7 01/03/18 09:01: Radiology Reviewed Discharge Instructions to patient/family Please see electronic discharge instructions given to patient. Discharge Medications Reviewed and agree with Discharge Medication list on patient's Discharge Instruction sheet Clinical Quality Measures DVT/VTE Risk/Contraindication: Risk Factor Score Per Nursin RFS Level Per Nursing on Admit: 4+=Very High Copy Copies To 1: Ashley Young, WENCESLAO REYES MD Jan 03, 2018 12:28 pm
[2018-01-04 06:27] LABS: HEPATITIS C ANTIBODY C Non-Reactive (Non-Reactive)
== END 2018-01-03 12:20 | disposition home or self-care (01) ==
LOC: EDUNIT# 14:22 → ER 14:25 → UNDOADMOB 17:00 → 4TH 17:00 → UNDODISOB 01-03 11:30
PROVIDERS: ADMIT Family Medicine; ATTEND Family Medicine
DX: I26.99 Other pulmonary embolism without acute cor pulmonale (principal); I82.412 Acute embolism and thrombosis of left femoral vein; I82.432 Acute embolism and thrombosis of left popliteal vein; R74.8 Abnormal levels of other serum enzymes; I10 Essential (primary) hypertension; Z79.899 Other long term (current) drug therapy
CPT/HCPCS: 36415; 71275; 80053; 80074; 81241; 85025; 94760; 94761; 96360; 96372; G0378

== ENCOUNTER → 2018-01-02 | Outpatient (CLI) | payer SELFPAY ==
[~2018-01-02] MED LIST: APIX5TAB PO; LISI1TAB8 PO
--- NOTE | 2018-01-02 14:43 | Diagnostic Imaging Report ---
PROCEDURE: US left lower extremity venous. TECHNIQUE: Multiple real-time grayscale images were obtained over the left lower extremity in various projections. Additional duplex Doppler and color Doppler images were also obtained. INDICATION: Left lower extremity swelling. The left common femoral vein is widely patent. The upper femoral vein is patent. There is partially occlusive thrombus in the midportion of the femoral vein. Occlusive thrombus is identified in the popliteal vein. Thrombus does extend below the knee into the calf. No fluid collection is detected. No mass is seen. IMPRESSION: Left lower extremity DVT, as described. Dictated by: Dictated on workstation # [id number]
== END ==
LOC: RAD 13:20
PROVIDERS: ATTEND Nurse Practitioner Family
DX: I82.412 Acute embolism and thrombosis of left femoral vein (principal); I82.432 Acute embolism and thrombosis of left popliteal vein; I82.4Z2 Acute embolism and thrombosis of unspecified deep veins of left distal lower extremity